=== PATIENT | female | born 1970 | race African-American/Black ===

== ENCOUNTER 2018-11-22 19:41 | Emergency (ER) | payer MEDICAID ==
[~2018-11-22] VITALS: Ht 170.2 cm; Wt 81.6 kg
--- NOTE | 2018-11-22 20:07 | Emergency Room Report ---
History of Present Illness General Chief Complaint: Pain Source: Patient Present Illness HPI The patient presents with 2 days of increased numbness in her right hand and arm. This is associated with increased pain in her shoulder. Pain radiates from her shoulder down her arm. 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 The patient is left-handed.There is also some chest discomfort. Pain is mainly in her shoulder rated 8/10, increased with movement and aching. She states her vision has changed recently. She denies headache. The numbness in her hand feels like she slept on her arm wrong. This persisted. There is tingling in her fingers. She is worried about a possible heart attack. Patient has a history of diabetes. She is noncompliant with her medication for a month. She has lost 8 pounds. She has some polydipsia but not significant. She lost her glucose strips and has been unable to check her blood sugars. Patient has a history of hypertension and is noncompliant with medications. She denies headache, dyspnea, back pain. She denies nausea, vomiting, diarrhea, dysuria, trauma, rashes, edema, calf pain. She has some skin swelling under her right breast. This is nontender. She has never had a mammogram. Allergies: Coded Allergies: PENICILLINS (Verified Allergy, Unknown, 11/22/18) Patient History Past Medical History: see triage record Social History: Denies: smoking Social History Narrative started working last Thursday Now: No Reviewed Nursing Documentation: PMH: Agreed; PSxH: Agreed Nursing Documentation-PMH Past Medical History: No History, Except For Hx Diabetes: Yes Review of Systems All Other Systems: negative except mentioned in HPI Physical Exam Vital Signs Date Time Temp Pulse Resp B/P (MAP) Pulse Ox O2 Delivery O2 Flow Rate FiO2 11/22/18 19:44 98.8 76 15 130/84 97 Room Air Sp02 EP Interpretation: reviewed, normal General Appearance: well appearing, no apparent distress, GCS 15 Head: normocephalic, atraumatic Eyes: bilateral eye normal inspection, bilateral eye PERRL, bilateral eye EOMI ENT: moist mucus membranes Neck: supple Respiratory: chest non-tender, lungs clear, normal breath sounds, other - Adipose tissue under axilla bilaterally Cardiovascular #1: regular rate, rhythm Cardiovascular #2: 2+ radial (R) Gastrointestinal: normal inspection, normal bowel sounds, non tender, no mass, non-distended Musculoskeletal: back normal, gait/station normal, normal range of motion, other - Tenderness right shoulder without crepitance Neurologic: alert, oriented x3, counseling specialist III-XII nml as tested, motor strength/tone normal, DTRs symmetric, sensory intact - Paresthesias noted right hand Psychiatric: mood/affect normal Skin: normal inspection, warm/dry Other Organ Systems Breast exam without masses and no axillary nodes. Medical Decision Making Diagnostic Impression: Primary Impression: Paresthesia Additional Impressions: Shoulder pain Qualified Codes: M25.511 - Pain in right shoulder History of diabetes mellitus History of hypertension UTI (urinary tract infection) Qualified Codes: N30.00 - Acute cystitis without hematuria ER Course Patient presents with right shoulder and chest pain with paresthesias to her right hand. Differential includes bursitis, muscle strain, electrolyte imbalance, muscle spasm amongst others. Patient will be evaluated with EKG, chest x-ray, shoulder x-rays, labs. It is significant that she is a diabetic and has been noncompliant for over a month.. The patient will be treated with Toradol. EKG no injury. Chest x-ray no infiltrates. Shoulder films unremarkable. Last with normal glucose. CBC normal.Normal sedimentation rate and troponin. Pyuria. Macrobid given. Pain is somewhat improved however the patient still complains about paresthesias. Discussed results with patient. Also discussed treatment plan. At this time no need for diabetic treatment. Patient improved and stable for outpatient observation and treatment. Laboratory Tests Test 11/22/18 20:20 White Blood Count 6.6 K/UL (4.8-10.8) Red Blood Count 5.15 M/UL (4.20-5.40) Hemoglobin 13.3 G/DL (12.0-16.0) Hematocrit 41.4 % (37.0-47.0) Mean Corpuscular Volume 80 FL (80-99) Mean Corpuscular Hemoglobin 25.7 PG (27.0-31.0) L Mean Corpuscular Hemoglobin Concent 32.1 G/DL (32.0-36.0) Red Cell Distribution Width 12.7 % (11.6-14.8) Platelet Count 234 K/UL (150-450) Mean Platelet Volume 7.8 FL (6.5-10.1) Neutrophils (%) (Auto) 49.6 % (45.0-75.0) Lymphocytes (%) (Auto) 40.4 % (20.0-45.0) Monocytes (%) (Auto) 7.3 % (1.0-10.0) Eosinophils (%) (Auto) 1.9 % (0.0-3.0) Basophils (%) (Auto) 0.9 % (0.0-2.0) Erythrocyte Sedimentation Rate 10 MM/HR (0-20) Prothrombin Time 11.2 SEC (9.30-11.50) Prothrombin Time INR 1.1 (0.9-1.1) PTT 30 SEC (23-33) Urine Color Yellow Urine Appearance Clear Urine pH 6.5 (4.5-8.0) Urine Specific [place] 1.015 (1.005-1.035) Urine Protein Negative (NEGATIVE) Urine Glucose (UA) Negative (NEGATIVE) Urine Ketones 1+ (NEGATIVE) H Urine Blood Negative (NEGATIVE) Urine Nitrite Negative (NEGATIVE) Urine Bilirubin Negative (NEGATIVE) Urine Urobilinogen 8 MG/DL (0.0-1.0) H Urine Leukocyte Esterase 1+ (NEGATIVE) H Urine RBC 0-2 /HPF (0 - 2) Urine WBC 5-10 /HPF (0 - 2) H Urine Squamous Epithelial Cells Few /LPF (NONE/OCC) Urine Bacteria Moderate /HPF (NONE) H Urine HCG, Qualitative Negative (NEGATIVE) Sodium Level 141 MMOL/L (136-145) Potassium Level 3.5 MMOL/L (3.5-5.1) Chloride Level 105 MMOL/L (98-107) Carbon Dioxide Level 27 MMOL/L (21-32) Anion Gap 9 mmol/L (5-15) Blood Urea Nitrogen 12 mg/dL (7-18) Creatinine 0.9 MG/DL (0.55-1.30) Estimate Glomerular Filtration Rate > 60 mL/min (>60) Glucose Level 80 MG/DL (74-106) Calcium Level 8.7 MG/DL (8.5-10.1) Magnesium Level 2.0 MG/DL (1.8-2.4) Total Bilirubin 1.1 MG/DL (0.2-1.0) H Direct Bilirubin 0.2 MG/DL (0.0-0.3) Aspartate Amino Transferase (AST) 20 U/L (15-37) Alanine Aminotransferase (ALT) 20 U/L (12-78) Alkaline Phosphatase 90 U/L (46-116) Total Creatine Kinase 211 U/L (26-308) Troponin I 0.001 ng/mL (0.000-0.056) Pro-B-Type Natriuretic Peptide 29 pg/mL (0-125) Total Protein 8.0 G/DL (6.4-8.2) Albumin 3.8 G/DL (3.4-5.0) Globulin 4.2 g/dL Albumin/Globulin Ratio 0.9 (1.0-2.7) L EKG Diagnostic Results Rate: normal Rhythm: NSR ST Segments: no acute changes Rhythm Strip Diag. Results EP Interpretation: yes Rhythm: NSR, no PVC's, no ectopy Chest X-Ray Diagnostic Results Chest X-Ray Diagnostic Results : Chest X-Ray Ordered: Yes # of Views/Limited/Complete: 1 View Indication: Chest Pain EP Interpretation: Yes Interpretation: no consolidation, no effusion, no pneumothorax Impression: No acute disease Electronically Signed by: Electronically signed by Guanaco Chin MD Other X-Ray Diagnostic Results Other X-Ray Diagnostic Results : X-Ray ordered: Right shoulder # of Views/Limited Vs Complete: 3 View Indication: Pain EP Interpretation: Yes Interpretation: no dislocation, no soft tissue swelling, no fractures Impression: No acute disease Electronically Signed by: Electronically signed by Guanaco Chin MD Last Vital Signs Date Time Temp Pulse Resp B/P (MAP) Pulse Ox O2 Delivery O2 Flow Rate FiO2 11/22/18 23:02 98.4 87 18 128/67 100 Room Air Status: improved Disposition: HOME, SELF-CARE Condition: Improved Scripts Nitrofurantoin Monohyd/M-Cryst* (MACROBID 100 MG*) 100 Mg Capsule 100 MG ORAL EVERY 12 HOURS, #14 CAP Prov: Guanaco Chin MD 11/22/18 Blood Sugar Diagnostic (GLUCOSE TEST STRIP) 1 Each Strip EACH MC NEEDED, #50 Prov: Guanaco Chin MD 11/22/18 Lancets (Blood Lancets) 1 Each Each EACH MC as directed, #50 Prov: Guanaco Chin MD 11/22/18 Multivitamin With Minerals (MULTIVITAMINS WITH MINERALS*) 1 Each Tablet 1 TAB ORAL DAILY, #30 TAB Prov: Guanaco Chin MD 11/22/18 Ibuprofen* (MOTRIN*) 600 Mg Tablet 600 MG ORAL Q6H PRN for For Pain, #20 TAB Prov: Guanaco Chin MD 11/22/18 Guanaco Chin MD Nov 22, 2018 20:07
[2018-11-22] MEDS ORDERED: Ketorolac 30mg Inj IV ONE (20:15)
--- NOTE | 2018-11-22 20:20 | NUR ---
ED Nurse Note: pt walked in ED c/o generalized pain, tingling in arms, right side chest pain for couple of days, denies sob, denies n/v/d. pt AA&ox4, gcs=15, skin warm and dry, resp even and unlabored, -n/v/d, ambulates w/ steady gait, NSR on environmental monitoring specialist, VSS, will cont monitor, warm blanket provided for comfort.
[2018-11-22 20:53] VITALS: BP 130/78
[2018-11-22 20:59] LABS: BASOPHILS % (AUTO) 0.9 % (0.0-2.0); EOSINOPHILS % (AUTO) 1.9 % (0.0-3.0); HEMATOCRIT 41.4 % (37.0-47.0); HEMOGLOBIN 13.3 G/DL (12.0-16.0); LYMPHOCYTES % (AUTO) 40.4 % (20.0-45.0); MEAN CORPUSCULAR VOLUME 80 FL (80-99); MONOCYTES % (AUTO) 7.3 % (1.0-10.0); NEUTROPHILS % (AUTO) 49.6 % (45.0-75.0); PLATELET COUNT 234 K/UL (150-450); RED BLOOD COUNT 5.15 M/UL (4.20-5.40); RED CELL DISTRIBUTION WIDTH 12.7 % (11.6-14.8); WHITE BLOOD COUNT 6.6 K/UL (4.8-10.8)
[2018-11-22 21:01] LABS: APPEARANCE,URINE CLEAR; BILIRUBIN, URINE NEGATIVE (NEGATIVE); GLUCOSE, URINE (UA) NEGATIVE (NEGATIVE); KETONES,URINE 1+ (NEGATIVE); LEUKOCYTE ESTERASE ,URINE 1+ (NEGATIVE); NITRITE,URINE NEGATIVE (NEGATIVE); PH,URINE 6.5 (4.5-8.0); PROTEIN,URINE NEGATIVE (NEGATIVE); UROBILINOGEN,URINE 8 MG/DL (0.0-1.0)
[2018-11-22 21:04] LABS: COLOR,URINE YELLOW
[2018-11-22 21:07] LABS: INR 1.1 (0.9-1.1)
[2018-11-22 21:13] LABS: ANION GAP 9 mmol/L (5-15); BLOOD UREA NITROGEN 12 mg/dL (7-18); CALCIUM 8.7 MG/DL (8.5-10.1); CARBON DIOXIDE 27 MMOL/L (21-32); CHLORIDE 105 MMOL/L (98-107); CREATININE 0.9 MG/DL (0.55-1.30); POTASSIUM 3.5 MMOL/L (3.5-5.1); SODIUM 141 MMOL/L (136-145)
[2018-11-22 21:24] LABS: ALANINE AMINOTRANSFERASE 20 U/L (12-78); ALBUMIN 3.8 G/DL (3.4-5.0); ALBUMIN/GLOBULIN RATIO 0.9 (1.0-2.7); ALKALINE PHOSPHATASE 90 U/L (46-116); ASPARTATE AMINO TRANSFERASE 20 U/L (15-37); BILIRUBIN,TOTAL 1.1 MG/DL (0.2-1.0); CREATINE KINASE 211 U/L (26-308)
[2018-11-22 21:26] LABS: BILIRUBIN,DIRECT 0.2 MG/DL (0.0-0.3)
[2018-11-22] MEDS ORDERED: BLOOD LANCETS1 EACH MC (22:43)
[2018-11-22] MEDS ORDERED: MULTIVITAMINS1 EAC8 ORAL (22:43)
[2018-11-22] MEDS ORDERED: IBUPROFEN600 MG ORAL (22:43)
[2018-11-22] MEDS ORDERED: GLUCOSE TEST S1 EACH MC (22:43)
[2018-11-22] MEDS ORDERED: NITROFURANTOIN100 M2 ORAL (22:47)
[2018-11-22 23:02] VITALS: BP 128/67
--- NOTE | 2018-11-22 23:03 | NUR ---
ED Nurse Note: pt is cleared to be d/c per ERMD, pt discharge/aftercare instruction provided w/ prescription, pt advised to follow up with pcp or return to ED if sx worsen or new sx develop, pt education done via discussion and hand out, pt verbalized understanding and agrees with plan, pt vss, airway intact, resp even and unlabored on RA, ambulatory w/ steady gait, all belongings left w/ pt.
--- NOTE | 2018-11-23 08:50 | Diagnostic Imaging Report ---
Indication: Chest pain Technique: One view of the chest Comparison: none Findings: Body habitus somewhat limits evaluation. The lungs and pleural spaces are clear. Heart size is upper limits of normal. Impression: Negative
--- NOTE | 2018-11-23 08:51 | Diagnostic Imaging Report ---
Indication: Right shoulder pain Technique: 3 views of the right shoulder Comparison: none Findings: No acute fractures. No dislocations. The joint spaces are preserved. Impression: Negative
--- NOTE | 2018-11-23 15:30 | Cardiology Report ---
APPROVED REPORT EKG Measurement Heart [id number] [place] [id number] Normal sinus rhythm Cannot rule out Anterior infarct, age undetermined Abnormal ECG
== END 2018-11-22 23:38 | disposition home or self-care (01) ==
LOC: EMR 20:03
DX: M25.511 Pain in right shoulder (principal); E11.9 Type 2 diabetes mellitus without complications; I10 Essential (primary) hypertension; N30.00 Acute cystitis without hematuria; R20.2 Paresthesia of skin; Z88.0 Allergy status to penicillin; Z91.19 Patient's noncompliance with other medical treatment and regimen; R07.9 Chest pain, unspecified
CPT/HCPCS: 36415; 71045; 73030; 80053; 81003; 81025; 82248; 82550; 82962; 83735; 83880; 84484; 85025; 85610; 85651; 85730; 87086; 93005; 96374; 99284; J1885